=== PATIENT | female | born 1985 | race Caucasian/White ===

== ENCOUNTER 2019-06-17 07:42 | Emergency (ER) | payer MEDICAID ==
[~2019-06-17] VITALS: Ht 162.6 cm; Wt 90.0 kg
[2019-06-17 08:27] LABS: BILIRUBIN,URINE NEGATIVE (NEG); CLARITY,URINE CLEAR; COLOR,URINE YELLOW; NITRITE,URINE NEGATIVE (NEG); PROTEIN,URINE NEGATIVE (NEG-TRACE); UROBILINOGEN,URINE 0.2 mg/dL (0.2 mg/dL)
[2019-06-17 08:38] LABS: BASO # 0.1 x10^3/uL (0.0-0.2); BASO % 1 % (0-3); EOS # 0.2 x10^3/uL (0.0-0.7); EOS % 3 % (0-3); HEMATOCRIT 38.7 % (36.0-47.0); HEMOGLOBIN 13.3 g/dL (12.0-15.5); LYMPH # 2.8 x10^3/uL (1.0-4.8); LYMPH % 28 % (24-48); MEAN CORPUSCULAR HEMOGLOBIN 30 pg (25-35); MEAN CORPUSCULAR HGB CONC 35 g/dL (31-37); MEAN CORPUSCULAR VOLUME 87 fL (79-100); MONO # 0.8 x10^3/uL (0.0-1.1); MONO % 8 % (0-9); NEUT % 61 % (31-73); PLATELET COUNT 267 x10^3/uL (140-400); RED BLOOD COUNT 4.46 x10^6/uL (3.50-5.40); RED CELL DISTRIBUTION WIDTH 12.3 % (11.5-14.5); WHITE BLOOD COUNT 9.9 x10^3/uL (4.0-11.0)
[2019-06-17 08:47] LABS: BACTERIA,URINE FEW /HPF (0-FEW); SQUAMOUS EPITHELIAL CELL,UR MANY /LPF; WBC,URINE OCC /HPF (0-4)
[2019-06-17 08:53] LABS: CALCIUM 8.6 mg/dL (8.5-10.1); CREATININE 0.7 mg/dL (0.6-1.0); POTASSIUM 3.7 mmol/L (3.5-5.1)
--- NOTE | 2019-06-17 09:03 | RAD ---
Examination: OB <14 WKS W/TV History: Vaginal bleeding. Fibroids.. Comparison/Correlation: None Findings: Endovaginal and transvaginal OB ultrasound stones were performed. Uterus measures 8.8 cm 4.3 cm x 5.1 cm. Intrauterine gestational sac is present with mean diameter of 1.03 cm corresponding to 5 weeks 5 days gestation. Yolk sac is evident. No pole. Small subchronic hemorrhage) 0.5 cm 0.2 cm 0.6 cm). Myometrium is unremarkable. Ultrasound EDC of 02/12/2020 11. Right ovary measures 2.8 cm x 2.6 cm x 2.3 cm. The thyroid measures 2.2 cm x 2.4 cm x 2.5 cm. Right ovarian follicle measuring up to 2 cm diameter is present and may represent a corpus luteum cyst. Nabothian cysts are present within the uterine cervix. Impression: Intrauterine gestational sac is present. Yolk sac is present. No pole identified and this may represent an early intrauterine gestation. Consider continued interval follow-up ultrasound. Small subchorionic hemorrhage. Electronically signed by: Rubio Garcia MD (06/17/2019 9:00 AM) [id number]
--- NOTE | 2019-06-17 09:47 | PHYS DOC ---
Past Medical History Past Medical History: Cancer Additional Past Medical Histor: BRAIN CANCER Past Surgical History: Tonsillectomy, Other Additional Past Surgical Histo: BRAIN SURGERY Smoking Status: Former Smoker Alcohol Use: None Adult General Chief Complaint Chief Complaint: VAGINAL BLEEDING [facility] HPI Patient is a 33 year old female with history of pain to more who presents with complaint of vaginal bleeding during . Patient is at 5 weeks of gestation LMP of May 09 with confirmed at another emergency room with positive test and intrauterine with ultrasound. Patient complaining of vaginal spotting this morning with marked left lower quadrant pain that her pain 2/10. Patient did not have recent intercourse and denies fever and chills, nausea and vomiting, vaginal discharge. Patient has her first [facility] INSPECTOR appointment on July 02. Review of Systems Review of Systems Constitutional: Denies fever or chills [] Eyes: Denies change in visual acuity, redness, or eye pain [] HENT: Denies nasal congestion or sore throat [] Respiratory: Denies cough or shortness of breath [] Cardiovascular: No additional information not addressed in HPI [] GI: Reports abdominal pain, denies nausea, vomiting, bloody stools or diarrhea [] : Denies dysuria or hematuria [] Musculoskeletal: Denies back pain or joint pain [] Integument: Denies rash or skin lesions [] Neurologic: Denies headache, focal weakness or sensory changes [] Endocrine: Denies polyuria or polydipsia [] All other systems were reviewed and found to be within normal limits, except as documented in this note. Allergies Allergies Allergies Coded Allergies Type Severity Reaction Last Updated Verified guaifenesin Allergy Unknown 06/17/19 Yes morphine Allergy Unknown 06/17/19 Yes promethazine Allergy Unknown 06/17/19 Yes Physical Exam Physical Exam Constitutional: Well developed, well nourished, no distress, non-toxic appearance. [] HENT: Normocephalic, atraumatic. Eyes: PERRLA, EOMI, conjunctiva normal, no discharge. [] Neck: Normal range of motion, no tenderness, supple, no stridor. [] Cardiovascular:Heart rate regular rhythm, no murmur [] Lungs & Thorax: Bilateral breath sounds clear to auscultation [] Abdomen: Bowel sounds normal, soft, no tenderness, no masses, no pulsatile masses. Patient didn't want to have vaginal exam. Skin: Warm, dry, no erythema, no rash. [] Back: No tenderness, no CVA tenderness. [] Extremities: No tenderness, no cyanosis, no clubbing, ROM intact, no edema. [] Neurologic: Alert and oriented X 3, no focal deficits noted. [] Psychologic: Affect normal, judgement normal, mood normal. [] Current Patient Data Vital Signs Vital Signs Date Time Temp Pulse Resp B/P (MAP) Pulse Ox O2 Delivery O2 Flow Rate FiO2 06/17/19 09:58 71 16 122/56 (78) 99 Room Air 06/17/19 07:50 98.2 98.2 Lab Values Laboratory Tests Test 06/17/19 07:52 06/17/19 07:55 06/17/19 08:22 Urine Collection Type Unknown Urine Color Yellow Urine Clarity Clear Urine pH 6.0 Urine Specific [place] 1.020 Urine Protein Negative mg/dL (NEG-TRACE) Urine Glucose (UA) Negative mg/dL (NEG) Urine Ketones (Stick) Negative mg/dL (NEG) Urine Blood Moderate (NEG) Urine Nitrite Negative (NEG) Urine Bilirubin Negative (NEG) Urine Urobilinogen Dipstick 0.2 mg/dL (0.2 mg/dL) Urine Leukocyte Esterase Small (NEG) Urine RBC 1-2 /HPF (0-2) Urine WBC Occ /HPF (0-4) Urine Squamous Epithelial Cells Many /LPF Urine Bacteria Few /HPF (0-FEW) Urine Mucus Marked /LPF POC Urine HCG, Qualitative Hcg positive (Negative) White Blood Count 9.9 x10^3/uL (4.0-11.0) Red Blood Count 4.46 x10^6/uL (3.50-5.40) Hemoglobin 13.3 g/dL (12.0-15.5) Hematocrit 38.7 % (36.0-47.0) Mean Corpuscular Volume 87 fL (79-100) Mean Corpuscular Hemoglobin 30 pg (25-35) Mean Corpuscular Hemoglobin Concent 35 g/dL (31-37) Red Cell Distribution Width 12.3 % (11.5-14.5) Platelet Count 267 x10^3/uL (140-400) Neutrophils (%) (Auto) 61 % (31-73) Lymphocytes (%) (Auto) 28 % (24-48) Monocytes (%) (Auto) 8 % (0-9) Eosinophils (%) (Auto) 3 % (0-3) Basophils (%) (Auto) 1 % (0-3) Neutrophils # (Auto) 6.0 x10^3/uL (1.8-7.7) Lymphocytes # (Auto) 2.8 x10^3/uL (1.0-4.8) Monocytes # (Auto) 0.8 x10^3/uL (0.0-1.1) Eosinophils # (Auto) 0.2 x10^3/uL (0.0-0.7) Basophils # (Auto) 0.1 x10^3/uL (0.0-0.2) Maternal Serum HCG Beta Subunit 7396 mIU/mL (0-5) H Sodium Level 137 mmol/L (136-145) Potassium Level 3.7 mmol/L (3.5-5.1) Chloride Level 105 mmol/L (98-107) Carbon Dioxide Level 22 mmol/L (21-32) Anion Gap 10 (6-14) Blood Urea Nitrogen 9 mg/dL (7-20) Creatinine 0.7 mg/dL (0.6-1.0) Estimated GFR (Cockcroft-Gault) 97.0 Glucose Level 93 mg/dL (70-99) Calcium Level 8.6 mg/dL (8.5-10.1) Laboratory Tests 06/17/19 08:22 Laboratory Tests 06/17/19 08:22 EKG EKG [] Radiology/Procedures Radiology/Procedures [facility] [address] [place], [place] [id number] IMAGING REPORT Signed PATIENT: ACCOUNT: [id number] : 1985 LOCATION: ER AGE: 33 SEX: F EXAM STATUS: REG ER ORD. PHYSICIAN: DAYANA FRANKS MD REASON: 5 weeks with vaginal bleeding PROCEDURE: OB <14 WKS W/TV Examination: OB <14 WKS W/TV History: Vaginal bleeding. Fibroids.. Comparison/Correlation: None Findings: Endovaginal and transvaginal OB ultrasound stones were performed. Uterus measures 8.8 cm 4.3 cm x 5.1 cm. Intrauterine gestational sac is present with mean diameter of 1.03 cm corresponding to 5 weeks 5 days gestation. Yolk sac is evident. No pole. Small subchronic hemorrhage) 0.5 cm 0.2 cm 0.6 cm). Myometrium is unremarkable. Ultrasound EDC of 02/12/2020 11. Right ovary measures 2.8 cm x 2.6 cm x 2.3 cm. The thyroid measures 2.2 cm x 2.4 cm x 2.5 cm. Right ovarian follicle measuring up to 2 cm diameter is present and may represent a corpus luteum cyst. Nabothian cysts are present within the uterine cervix. Impression: Intrauterine gestational sac is present. Yolk sac is present. No pole identified and this may represent an early intrauterine gestation. Consider continued interval follow-up ultrasound. Small subchorionic hemorrhage. Electronically signed by: Neftali Holt MD (06/17/2019 9:00 AM) [id number] DICTATED and SIGNED BY: NEFTALI HOLT MD DATE: 06/17/19 0900 Course & Med Decision Making Course & Med Decision Making Pertinent Labs and Imaging studies reviewed. (See chart for details) Evaluation of patient in ER showed 33-year-old female patient at 5 weeks of gestation with vaginal spotting since this morning. Patient had hCG developed more than 7,000 and OB ultrasound showed intrauterine with yolk sac without heart rate. Patient was advised to follow-up with her [facility] INSPECTOR for repeat hCG in 48 hours. I've spoken with the patient and/or caregivers. I've explained the patient's condition, diagnosis and treatment plan based on information available to me at this time. I've answered the patient's and/or caregivers questions and addressed any concerns. The patient and/or caregivers have a good understanding the patient's diagnosis, condition and treatment plan as can be expected at this point. Vital signs have been stabilized. The patient's condition is stable for discharge from the emergency department. The patient will pursue further outpatient evaluation with her primary care provider or other designated consulting physician as outlined in the discharge instructions. Patient and/or caregivers are agreeable to this plan of care and follow-up instructions have been explained in detail. The patient and/or c aregivers have received these instructions in written format and expressed understanding of these discharge instructions. The patient and her caregivers are aware that if any significant change in condition or worsening of symptoms should prompt him to immediately return to this of the closest emergency department. If an emergent department is not readily available I would encourage him to call 911. Leila Disclaimer Leila Disclaimer This electronic medical record was generated, in whole or in part, using a voice recognition dictation system. Departure Departure Impression: Primary Impression: Threatened Disposition: HOME, SELF-CARE (at 945) Condition: STABLE Referrals: NO PCP (PCP) Patient Instructions: Threatened Miscarriage Additional Instructions: Drink plenty of liquids Follow-up with your WHEAT INSPECTOR physician in 2 days for repeat blood test your current Beta hCG is 7396 Return to ER if not getting better DAYANA FRANKS MD Jun 17, 2019 09:47
[2019-06-17 09:58] VITALS: BP 122/56
== END 2019-06-17 09:58 | disposition home or self-care (01) ==
LOC: ER 07:42
DX: O20.0 Threatened abortion (principal); Z3A.01 Less than 8 weeks gestation of pregnancy; Z87.891 Personal history of nicotine dependence; Z88.5 Allergy status to narcotic agent; Z88.8 Allergy status to other drugs, medicaments and biological substances
CPT/HCPCS: 36415; 76801; 76817; 80048; 81001; 81025; 84702; 85025; 86900; 86901; 87086; 99285-25

== ENCOUNTER 2019-06-23 08:00 | Emergency (ER) | payer MEDICAID ==
[~2019-06-23] VITALS: Ht 162.6 cm; Wt 90.0 kg
[2019-06-23] MEDS ORDERED: IV NORMAL SALINE 1000ML BAG 1,000 ML IV ONE (08:15)
[2019-06-23 08:21] LABS: BASO # 0.1 x10^3/uL (0.0-0.2); BASO % 1 % (0-3); EOS # 0.3 x10^3/uL (0.0-0.7); EOS % 3 % (0-3); HEMATOCRIT 38.6 % (36.0-47.0); HEMOGLOBIN 13.2 g/dL (12.0-15.5); LYMPH # 3.1 x10^3/uL (1.0-4.8); LYMPH % 29 % (24-48); MEAN CORPUSCULAR HEMOGLOBIN 31 pg (25-35); MEAN CORPUSCULAR HGB CONC 34 g/dL (31-37); MEAN CORPUSCULAR VOLUME 89 fL (79-100); MONO # 0.7 x10^3/uL (0.0-1.1); MONO % 6 % (0-9); NEUT # 6.6 x10^3/uL (1.8-7.7); NEUT % 61 % (31-73); PLATELET COUNT 245 x10^3/uL (140-400); RED BLOOD COUNT 4.33 x10^6/uL (3.50-5.40); RED CELL DISTRIBUTION WIDTH 12.2 % (11.5-14.5); WHITE BLOOD COUNT 10.8 x10^3/uL (4.0-11.0)
--- NOTE | 2019-06-23 08:35 | PHYS DOC ---
Past Medical History Past Medical History: Cancer, Seizure Additional Past Medical Histor: BRAIN CANCER Past Surgical History: Tonsillectomy, Other Additional Past Surgical Histo: BRAIN SURGERY Smoking Status: Current Every Day Smoker Alcohol Use: None Drug Use: None Adult General Chief Complaint Chief Complaint: SEIZURE HPI HPI Patient is a 33 year old female with a history of brain cancer s/p brain surgery with subsequent seizures presents with reports of breakthrough seizure-like activity this morning. Her boyfriend states that he saw the patient having generalized tonic-clonic seizures in her bed around 730AM this morning. He states the episode lasted for around 5 minutes and the patient was confused once the seizures stopped. He denies witnessing any head trauma during the episode. Patient reports some headache. She is having some pain on the left lateral side of her tongue which she bit during the episode. She states that she is currently 6 weeks and has not had an OB visit for her yet. She states she is not currently having any vaginal bleeding. Patient states she is currently not being followed by a neurologist but was seen by [facility] in the past. Last seizure took place back in December and she was seen at [facility] ED where a head CT w/o contrast came back normal, per patient. Review of Systems Review of Systems Constitutional: Denies fever or chills Eyes: Denies redness or eye pain HENT: Denies nasal congestion or sore throat Respiratory: Denies cough or shortness of breath Cardiovascular: Denies chest pain or palpitations GI: Denies abdominal pain, nausea, or vomiting : Denies dysuria or hematuria Musculoskeletal: Denies back pain or joint pain Integument: Denies rash or skin lesions Neurologic: Denies headache, focal weakness or sensory changes; reports seizure- like activity and headache Complete systems were reviewed and found to be within normal limits, except as documented in this note. Family History Family History No pertinent family history. Current Medications Current Medications Current Medications Medications (Trade) Dose Ordered Sig/Adilene Start Time Stop Time Status Last Admin Dose Admin Acetaminophen (Tylenol) 500 mg 1X ONCE 06/23/19 09:30 06/23/19 09:32 DC 06/23/19 09:46 500 MG Sodium Chloride 1,000 ml @ 1,000 mls/hr 1X ONCE 06/23/19 08:15 06/23/19 09:14 DC 06/23/19 08:52 1,000 MLS/HR Allergies Allergies Allergies Coded Allergies Type Severity Reaction Last Updated Verified guaifenesin Allergy Unknown 06/17/19 Yes morphine Allergy Unknown 06/17/19 Yes promethazine Allergy Unknown 06/17/19 Yes Physical Exam Physical Exam Constitutional: Well developed, well nourished, no acute distress, non-toxic appearance HENT: Normocephalic, mild erythema in the left lateral side of her tongue, oropharynx moist Eyes: PERRLA, EOMI, conjunctiva normal, no discharge, no nystagmus Neck: Normal range of motion, no tenderness, supple Cardiovascular: Heart rate normal, regular rhythm Lungs & Thorax: Bilateral breath sounds clear to auscultation, no wheezing Abdomen: Soft, no tenderness Skin: Warm, dry, no erythema, no rash Extremities: No tenderness, ROM intact, no edema Neurologic: Alert and oriented X 3, normal motor function, normal sensory function, no focal deficits noted, CN II-XII intact bilaterally Psychologic: Affect normal, judgment normal Current Patient Data Vital Signs Vital Signs Date Time Temp Pulse Resp B/P (MAP) Pulse Ox O2 Delivery O2 Flow Rate FiO2 06/23/19 10:32 68 16 99 06/23/19 08:00 97.1 112/69 (83) Room Air 97.1 Lab Values Laboratory Tests Test 06/23/19 08:04 06/23/19 08:24 06/23/19 08:48 White Blood Count 10.8 x10^3/uL (4.0-11.0) Red Blood Count 4.33 x10^6/uL (3.50-5.40) Hemoglobin 13.2 g/dL (12.0-15.5) Hematocrit 38.6 % (36.0-47.0) Mean Corpuscular Volume 89 fL (79-100) Mean Corpuscular Hemoglobin 31 pg (25-35) Mean Corpuscular Hemoglobin Concent 34 g/dL (31-37) Red Cell Distribution Width 12.2 % (11.5-14.5) Platelet Count 245 x10^3/uL (140-400) Neutrophils (%) (Auto) 61 % (31-73) Lymphocytes (%) (Auto) 29 % (24-48) Monocytes (%) (Auto) 6 % (0-9) Eosinophils (%) (Auto) 3 % (0-3) Basophils (%) (Auto) 1 % (0-3) Neutrophils # (Auto) 6.6 x10^3/uL (1.8-7.7) Lymphocytes # (Auto) 3.1 x10^3/uL (1.0-4.8) Monocytes # (Auto) 0.7 x10^3/uL (0.0-1.1) Eosinophils # (Auto) 0.3 x10^3/uL (0.0-0.7) Basophils # (Auto) 0.1 x10^3/uL (0.0-0.2) Lactic Acid Level 5.2 mmol/L (0.4-2.0) *H Urine Collection Type Void Urine Color Yellow Urine Clarity Hazy Urine pH 6.0 Urine Specific [place] 1.025 Urine Protein 30 mg/dL (NEG-TRACE) Urine Glucose (UA) Negative mg/dL (NEG) Urine Ketones (Stick) Negative mg/dL (NEG) Urine Blood Negative (NEG) Urine Nitrite Negative (NEG) Urine Bilirubin Negative (NEG) Urine Urobilinogen Dipstick 0.2 mg/dL (0.2 mg/dL) Urine Leukocyte Esterase Large (NEG) Urine RBC 1-2 /HPF (0-2) Urine WBC >40 /HPF (0-4) Urine Squamous Epithelial Cells Many /LPF Urine Bacteria Many /HPF (0-FEW) Urine Mucus Marked /LPF Maternal Serum HCG Beta Subunit 48090 mIU/mL (0-5) H Sodium Level 137 mmol/L (136-145) Potassium Level 4.2 mmol/L (3.5-5.1) Chloride Level 104 mmol/L (98-107) Carbon Dioxide Level 20 mmol/L (21-32) L Anion Gap 13 (6-14) Blood Urea Nitrogen 12 mg/dL (7-20) Creatinine 0.7 mg/dL (0.6-1.0) Estimated GFR (Cockcroft-Gault) 97.0 BUN/Creatinine Ratio 17 (6-20) Glucose Level 94 mg/dL (70-99) Calcium Level 8.6 mg/dL (8.5-10.1) Magnesium Level 1.8 mg/dL (1.8-2.4) Total Bilirubin 1.0 mg/dL (0.2-1.0) Aspartate Amino Transferase (AST) 13 U/L (15-37) L Alanine Aminotransferase (ALT) 19 U/L (14-59) Alkaline Phosphatase 71 U/L (46-116) Creatine Kinase 65 U/L (26-192) Total Protein 6.4 g/dL (6.4-8.2) Albumin 3.2 g/dL (3.4-5.0) L Albumin/Globulin Ratio 1.0 (1.0-1.7) Laboratory Tests 06/23/19 08:04 Laboratory Tests 06/23/19 08:48 Course & Med Decision Making Course & Med Decision Making Pertinent Labs reviewed. (See chart for details) Patient is a 33 year old female with a history of brain cancer s/p brain surgery, and seizures who presents with seizure-like activity. The episode occurred this morning at home in her bed around 730AM and was witnessed by her boyfriend. The episode lasted around 5 minutes and the patient was confused when the episode ended, per her boyfriend. Patient is currently 6 weeks and denies having any vaginal bleeding at this time. IVF were ordered. Serum HCG confirmed and levels were increased compar ed to that of her last visit at [place] ED for which she presented with threatened and bleeding on 06/17/19 per her [facility] chart review. Patient was given Tylenol for headache. Labs were significant for a lactic acid of 5.6 consistent with tonic clonic episode and anaerobic metabolism. UA showed increased WBCs, but patient is denying dysuria or hematuria at this time. Urine culture was ordered to rule out UTI. Patient is stable for discharge at this time. Patient was instructed to take OTC Tylenol for headaches as needed and to follow up with [facility] for her seizures and [facility] for the after discharge. Patient stable for discharge home with outpatient follow-up with PCP/OB/Neurologist. Discussed findings and plan with patient, who acknowledges understanding and agreement. Dragon Disclaimer Dragon Disclaimer This electronic medical record was generated, in whole or in part, using a voice recognition dictation system. Departure Departure Impression: Primary Impression: Breakthrough seizure Additional Impression: Disposition: 01 HOME, SELF-CARE Condition: STABLE Referrals: NO PCP (PCP) Patient Instructions: ABCs of , Seizure, Adult, [id number] Additional Instructions: May take [id number] Tylenol for pain as needed. Problem Qualifiers Additional Impression: Weeks of gestation: unspecified Qualified Codes: Z34.90 - Encounter for supervision of normal , unspecified, unspecified trimester ARELI GRIFFIN DO Jun 23, 2019 08:35
[2019-06-23 08:47] LABS: BILIRUBIN,URINE NEGATIVE (NEG); COLOR,URINE YELLOW; NITRITE,URINE NEGATIVE (NEG); PROTEIN,URINE 30 mg/dL (NEG-TRACE); UROBILINOGEN,URINE 0.2 mg/dL (0.2 mg/dL)
[2019-06-23 08:50] LABS: CLARITY,URINE HAZY
[2019-06-23 08:52] LABS: BACTERIA,URINE MANY /HPF (0-FEW); SQUAMOUS EPITHELIAL CELL,UR MANY /LPF; WBC,URINE >40 /HPF (0-4)
[2019-06-23 09:19] LABS: CALCIUM 8.6 mg/dL (8.5-10.1); CREATININE 0.7 mg/dL (0.6-1.0); POTASSIUM 4.2 mmol/L (3.5-5.1)
[2019-06-23 09:25] LABS: ALBUMIN 3.2 g/dL (3.4-5.0); MAGNESIUM 1.8 mg/dL (1.8-2.4); TOTAL PROTEIN 6.4 g/dL (6.4-8.2)
[2019-06-23] MEDS ORDERED: ACETAMINOPHEN 500 MG TABLET PO ONE (09:30)
[2019-06-23 10:32] VITALS: BP 115/60
== END 2019-06-23 11:02 | disposition home or self-care (01) ==
LOC: ER 08:00
DX: O26.891 Other specified pregnancy related conditions, first trimester (principal); G40.89 Other seizures; R51 Headache; R41.0 Disorientation, unspecified; O99.331 Smoking (tobacco) complicating pregnancy, first trimester; Z85.841 Personal history of malignant neoplasm of brain; Z90.89 Acquired absence of other organs; Z98.890 Other specified postprocedural states; Z88.6 Allergy status to analgesic agent; Z88.8 Allergy status to other drugs, medicaments and biological substances; Z3A.01 Less than 8 weeks gestation of pregnancy
CPT/HCPCS: 36415; 80053; 81001; 82550; 83605; 83735; 84702; 85025; 87086; 96360; 99284; J7030

== ENCOUNTER 2019-12-04 00:52 | Emergency (ER) | payer MEDICAID ==
[~2019-12-04] VITALS: Ht 162.6 cm; Wt 86.4 kg
[2019-12-04 01:05] LABS: BILIRUBIN,URINE NEGATIVE (NEG); CLARITY,URINE CLOUDY; COLOR,URINE YELLOW; NITRITE,URINE NEGATIVE (NEG); PH,URINE 5.5 (<5.0-8.0); PROTEIN,URINE NEGATIVE (NEG-TRACE); UROBILINOGEN,URINE 0.2 mg/dL (0.2 mg/dL)
[2019-12-04 01:17] LABS: BACTERIA,URINE MANY /HPF (0-FEW); RBC,URINE OCC /HPF (0-2); SQUAMOUS EPITHELIAL CELL,UR MANY /LPF; WBC,URINE 20-40 /HPF (0-4)
[2019-12-04 01:34] VITALS: BP 131/80
--- NOTE | 2019-12-04 02:32 | RAD ---
Obstetric ultrasound less than 14 weeks: Reason for examination: Abdominal pain and cramping starting yesterday. No bleeding. Transabdominal ultrasound examination of the pelvis was performed. Uterus measures 11.2 x 6.5 x 7.7 cm in greatest dimensions. Right ovary measures 2.7 x 2.3 x 2 cm in greatest dimension with normal vascular flow. Left ovary is not visualized. There is no free fluid in the cul-de-sac. There is a single viable intrauterine gestation present with a heart rate of 163 bpm. Gestational sac shows normal contour. No hemorrhage is evident. Yolk sac is identified. pole is present with a crown-rump length measuring approximately 1.66 cm corresponding to gestational age of 8 weeks 1 day. Gestational sac measures 4.09 cm corresponding to gestational age of 9 weeks 4 days. Mean gestational age is estimated at 8 weeks 6 days with estimated date of confinement of 07/09/2020. IMPRESSION: Single viable intrauterine gestation with a mean gestational age estimated at 8 weeks 6 days with estimated date of confinement of 07/09/2020. Electronically signed by: Ngoc Pérez MD (12/04/2019 2:30 AM) [id number]
--- NOTE | 2019-12-04 02:56 | PHYS DOC ---
Past Medical History Past Medical History: Seizure Additional Past Medical Histor: BRAIN CANCER Past Surgical History: Tonsillectomy, Other Additional Past Surgical Histo: Brain surgery X2, ear sx, foot Smoking Status: Current Every Day Smoker Alcohol Use: None Drug Use: None General Adult EDM: Chief Complaint: ABDOMINAL PAIN IN HPI: HPI: Patient is a 33 year old female at 8 weeks gestation who presents with left pelvic cramping that started yesterday. She denies any vaginal bleeding. She has not had any cramping with this . She denies any dysuria. She has not had any vaginal discharge. She also has a headache. This is typical of her normal headaches. She gets migraines due to previous brain cancer. She denies any symptoms with this. This started earlier this evening and has progressively gotten worse. Review of Systems: Review of Systems: General: Denies fever, chills, sweats, fatigue Eyes: Denies drainage, blurred vision, eye redness HENT: Denies rhinorrhea, sore throat, earache Respiratory: Denies cough, shortness of breath, wheezing Cardiac: Denies edema, palpitations, chest pain GI: Denies abdominal pain, Nausea, vomiting reports pelvic pain MSK: Denies back pain, neck pain Skin: Denies rash, jaundice Neuro: Denies dizziness reports headache Psychiatric: Denies SI/HI Heart Score: Risk Factors: Risk Factors: DM, Current or recent (<one month) smoker, HTN, HLP, family history of CAD, obesity. Risk Scores: Score 0 - 3: 2.5% MACE over next 6 weeks - Discharge Home Score 4 - 6: 20.3% MACE over next 6 weeks - Admit for Clinical Observation Score 7 - 10: 72.7% MACE over next 6 weeks - Early Invasive Strategies Current Medications: Current Medications Medications (Trade) Dose Ordered Sig/Adilene Start Time Stop Time Status Last Admin Dose Admin Diphenhydramine HCl (Benadryl) 25 mg 1X ONCE 12/04/19 03:00 12/04/19 03:01 Metoclopramide HCl (Reglan) 10 mg 1X ONCE 12/04/19 03:00 12/04/19 03:01 Sodium Chloride 1,000 ml @ 1,000 mls/hr 1X ONCE 12/04/19 02:45 12/04/19 03:44 UNV Allergies: Allergies: Allergies Coded Allergies Type Severity Reaction Last Updated Verified guaifenesin Allergy Unknown 06/17/19 Yes morphine Allergy Unknown 06/17/19 Yes promethazine Allergy Unknown 06/17/19 Yes Physical Exam: PE: General: Awake, alert, NAD. Well Nourished, well hydrated. Cooperative HEENT: Atraumatic, EOMI, PERRL, airway patent, moist oral mucosa Neck: Supple, trachea midline Respiratory: CTA bilaterally, normal effort, no wheezing/crackles CV: RRR, no murmur, cap refill <2 GI: Soft, nondistended, nontender, no masses MSK: No obvious deformities Skin: Warm, dry, intact Neuro: A&O x3, speech NL, sensory and motor grossly intact, no focal deficits Psych: Normal affect, normal mood, not suicidal or homicidal Current Patient Data: Labs: Laboratory Tests Test 12/04/19 00:51 12/04/19 01:03 Urine Collection Type Unknown Urine Color Yellow Urine Clarity Cloudy Urine pH 5.5 (<5.0-8.0) Urine Specific [place] >=1.030 (1.000-1.030) Urine Protein Negative mg/dL (NEG-TRACE) Urine Glucose (UA) Negative mg/dL (NEG) Urine Ketones (Stick) Negative mg/dL (NEG) Urine Blood Negative (NEG) Urine Nitrite Negative (NEG) Urine Bilirubin Negative (NEG) Urine Urobilinogen Dipstick 0.2 mg/dL (0.2 mg/dL) Urine Leukocyte Esterase Trace (NEG) Urine RBC Occ /HPF (0-2) Urine WBC 20-40 /HPF (0-4) Urine Squamous Epithelial Cells Many /LPF Urine Bacteria Many /HPF (0-FEW) Urine Mucus Marked /LPF POC Urine HCG, Qualitative Hcg positive (Negative) Vital Signs: Vital Signs Date Time Temp Pulse Resp B/P (MAP) Pulse Ox O2 Delivery O2 Flow Rate FiO2 12/04/19 01:34 98.2 71 20 131/80 (97) 99 Room Air 98.2 EKG: EKG: [] Radiology/Procedures: Radiology/Procedures: [] Course & Med Decision Making: Course & Med Decision Making Pertinent Labs and Imaging studies reviewed. (See chart for details) Patient is a 33-year-old female at 8 weeks gestation presenting to the emergency room with pelvic pain. Ultrasound was done which shows a viable 8-week intrauterine . UA was ordered. Patient was given medication for headache. This is her typical headache without any new features. There is no concern at this time for intracranial hemorrhage, infection, encephalopathy. Headache treated. Patient will be given antibiotics for UTI. Patient's test results and vitals while in the ED were fully reviewed and discussed with the patient. Patient is stable and at this time does not need admission to the hospital. We have discussed strict return precautions and the importance of following up with their Primary Care Physician. Patient stated understanding and was given an opportunity to ask any questions. Patient is in agreement with plan. Dragon Disclaimer: Dragon Disclaimer: This electronic medical record was generated, in whole or in part, using a voice recognition dictation system. Departure Departure Impression: Primary Impression: Headache Additional Impression: Abdominal pain affecting Disposition: HOME, SELF-CARE Condition: IMPROVED Referrals: NO PCP (PCP) Patient Instructions: Abdominal Pain During Scripts Cephalexin (KEFLEX) 500 Mg Capsule 1 CAP PO Q12HR for 7 Days, #14 CAP 0 Refills Prov: DONNIE REED MD 12/04/19 Justicifation of Admission Dx: Justifications for Admission: Justification of Admission Dx: No DONNIE REED MD Dec 04, 2019 02:55
[2019-12-04] MEDS ORDERED: CEPH-264 PO (02:57)
[2019-12-04] MEDS ORDERED: METOCLOPRAMIDE 10 MG TABLET. PO ONE (03:00)
[2019-12-04] MEDS ORDERED: IV NORMAL SALINE 1000ML BAG 1,000 ML IV ONE (03:00)
[2019-12-04] MEDS ORDERED: diphenhydrAMINE HCL 25 MG CAPSULE PO ONE (03:00)
== END 2019-12-04 04:05 | disposition home or self-care (01) ==
LOC: ER 00:52
DX: O26.891 Other specified pregnancy related conditions, first trimester (principal); G43.909 Migraine, unspecified, not intractable, without status migrainosus; R10.9 Unspecified abdominal pain; R10.2 Pelvic and perineal pain; O99.331 Smoking (tobacco) complicating pregnancy, first trimester; Z3A.08 8 weeks gestation of pregnancy; Z98.890 Other specified postprocedural states
CPT/HCPCS: 76801; 81001; 81025; 99284; J7030

== ENCOUNTER 2021-03-23 06:03 | Emergency (ER) | payer MEDICAID ==
[~2021-03-23] VITALS: Ht 162.6 cm; Wt 90.9 kg
[~2021-03-23 06:03] MED LIST: CEPH-264 PO
--- NOTE | 2021-03-23 06:22 | PHYS DOC ---
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 States that she began having seizures approximately 5 years ago when she was first diagnosed with a brain cancer. She had previously been on Keppra. Had a resection of a brain cancer at [facility]. States that for the past year after her resection has been seizure-free, and is no longer on Keppra. No recent medication changes. No drugs or alcohol use. No new life stressors. Has been sleeping okay. She cannot recall any triggers for her seizure tonight. Had a witnessed seizure in her sleep, with tonic-clonic activity. Has slowly been coming back to her neurologic baseline. blood glucose for EMS was 110. Review of Systems: Review of Systems: Constitutional: Denies fever or chills. [] Eyes: Denies change in visual acuity. [] HENT: Denies nasal congestion or sore throat. Reports tongue biting. [] Respiratory: Denies cough or shortness of breath. [] Cardiovascular: Denies chest pain or edema. [] GI: Denies abdominal pain, nausea, vomiting, bloody stools or diarrhea. [] : Denies dysuria. [] Musculoskeletal: Denies back pain or joint pain. [] Integument: Denies rash. [] Neurologic: Reports seizure. Reports mild headache. No focal weakness or sensory changes. [] Endocrine: Denies polyuria or polydipsia. [] Lymphatic: Denies swollen glands. [] Psychiatric: Denies depression or anxiety. [] Heart Score: C/O Chest Pain: No Risk Factors: Risk Factors: DM, Current or recent (<one month) smoker, HTN, HLP, family history of CAD, obesity. Risk Scores: Score 0 - 3: 2.5% MACE over next 6 weeks - Discharge Home Score 4 - 6: 20.3% MACE over next 6 weeks - Admit for Clinical Observation Score 7 - 10: 72.7% MACE over next 6 weeks - Early Invasive Strategies Allergies: Allergies: Allergies Coded Allergies Type Severity Reaction Last Updated Verified guaifenesin Allergy Unknown 06/17/19 Yes morphine Allergy Unknown 06/17/19 Yes promethazine Allergy Unknown 06/17/19 Yes Physical Exam: PE: Constitutional: Well developed, well nourished, no acute distress, non-toxic appearance. [] HENT: No external evidence of trauma. Lateral tongue biting apparent on the left. Eyes: PERRLA, EOMI, conjunctiva normal, no discharge. [] Neck: Normal range of motion, no tenderness, supple, no stridor. [] Cardiovascular:Heart rate regular rhythm, no murmur [] Lungs & Thorax: Bilateral breath sounds clear to auscultation [] Abdomen: Bowel sounds normal, soft, no tenderness, no masses, no pulsatile masses. [] Skin: Warm, dry, no erythema, no rash. [] Back: No tenderness, no CVA tenderness. [] Extremities: No tenderness, no cyanosis, no clubbing, ROM intact, no edema. [] Neurologic: Alert, oriented to person, place, time. Face is symmetric. Speech is normal. Cranial nerves III-XII intact. 5/5 strength in bilateral upper and lower extremities in all dermatomes. No dysmetria with [id number] or wdum-cp-[id number] testing. Gait is stable. Psychologic: Affect normal, judgement normal, mood normal. [] EKG: EKG: Sinus rhythm. Rate 79. Normal axis. Normal intervals. No ischemic changes. [] Radiology/Procedures: Radiology/Procedures: [] Impression: [facility] [address] [place], [place] [id number] IMAGING REPORT Signed PATIENT: LUPILLO ACCOUNT: [id number] : 1985 LOCATION: ER AGE: 35 SEX: F EXAM STATUS: REG ER ORD. PHYSICIAN: DORITA SAMAYOA MD REASON: hx brain cancer in remission, had recurrent seizure today PROCEDURE: CT HEAD WO/W CONTRAST PQRS Compliance Statement: One or more of the following individualized dose reduction techniques were utilized for this examination: 1. Automated exposure control 2. Adjustment of the mA and/or kV according to patient size 3. Use of iterative reconstruction technique CT HEAD WITHOUT AND WITH IV CONTRAST Clinical Indication: Reason: hx brain cancer in remission, had recurrent seizure today Comparison: None. Procedure: Axial images are obtained of the head from the skull base through the vertex before and after 70 cc of Omnipaque 300 IV contrast. Findings: There is right frontal lobe encephalomalacia. There is ex vacuo dilation of the right frontal horn. On postcontrast images no abnormal intracranial enhancement is identified. Small hypodensity anterior to the left frontal horn may also be encephalomalacia. No mass-effect, midline shift, hemorrhage, extra-axial fluid collection, or obvious acute infarction is identified. Basilar cisterns are patent. There has been previous right frontal craniotomy. No acute calvarial fracture is identified. The visualized paranasal sinuses are clear. Mastoid air cells are well aerated. IMPRESSION: 1. No acute intracranial abnormality. 2. Right frontal lobe encephalomalacia. No abnormal enhancement. Electronically signed by: Leopoldo Carter MD (03/23/2021 7:42 AM) [facility] DICTATED and SIGNED BY: LEOPOLDO CARTER MD DATE: 03/23/21 [id number] 0 Course & Med Decision Making: Course & Med Decision Making Pertinent Labs and Imaging studies reviewed. (See chart for details) Patient a 35-year-old female with a history of oligodendroglioma s/p resection who presents with her first seizure in over a year. Slowly returning to neurologic baseline. Vital signs reassuring, with some mild hypertension 131/63. Denies possibility of , tubes tied. Her seizure history has been tied to her cancer, so this is concerning for potential tumor recurrence. Will obtain CT head with/without contrast for further evaluation. 0622 No e/o metabolic cause for seizure on labs. CT head stable, no evidence of ICH or recurrence. Patient plans to f/u w/ outpatient neurologist. Will resume Keppra dosing. 0748 Leila Disclaimer: Leila Disclaimer: This electronic medical record was generated, in whole or in part, using a voice recognition dictation system. Departure Departure Impression: Primary Impression: Seizure Disposition: 01 HOME / SELF CARE / HOMELESS Condition: STABLE Referrals: NO PCP (PCP) Additional Instructions: Please call your outpatient neurologist to schedule a follow-up appointment. Please contact their office today to get this process started. You can resume your Keppra dose, starting at 500 milligrams twice daily. DANITA,DORITA E MD Mar 23, 2021 06:22
[2021-03-23] MEDS ORDERED: ONDANSETRON PF 4 MG/2 ML VIAL. ONE (06:43)
[2021-03-23 06:52] LABS: BASO # 0.1 x10^3/uL (0.0-0.2); BASO % 1 % (0-3); EOS # 0.2 x10^3/uL (0.0-0.7); EOS % 2 % (0-3); HEMATOCRIT 42.3 % (36.0-47.0); LYMPH # 2.5 x10^3/uL (1.0-4.8); LYMPH % 30 % (24-48); MEAN CORPUSCULAR HEMOGLOBIN 29 pg (25-35); MEAN CORPUSCULAR HGB CONC 33 g/dL (31-37); MEAN CORPUSCULAR VOLUME 88 fL (79-100); MONO # 0.5 x10^3/uL (0.0-1.1); MONO % 6 % (0-9); NEUT % 60 % (31-73); PLATELET COUNT 279 x10^3/uL (140-400); RED BLOOD COUNT 4.82 x10^6/uL (3.50-5.40); RED CELL DISTRIBUTION WIDTH 12.9 % (11.5-14.5); WHITE BLOOD COUNT 8.3 x10^3/uL (4.0-11.0)
[2021-03-23] MEDS ORDERED: ONDANSETRON PF 4 MG/2 ML VIAL. IVP ONE (07:00)
[2021-03-23 07:05] LABS: CALCIUM 8.3 mg/dL (8.5-10.1); GFR 63.5
[2021-03-23] MEDS ORDERED: IOHEXOL 300 MG/ML 100ML VIAL. IV ONE (07:15)
[2021-03-23] MEDS ORDERED: CONTRAST GIVEN. MC PRN (07:15)
--- NOTE | 2021-03-23 07:27 | EKG ---
[facility] [address] [place] [address] Test Date: 2021-03-23 Test Time: 06:18:23 Pat Name: [facility] Department: Room: Gender: F Regional Merchandising Manager: : 1985 Requested By: DORITA SAMAYOA Order Number: [id number] Reading MD: Stephen Turpin Measurements Intervals [place] Rate: 79 P: 42 WV: 174 QRS: 15 QRSD: 92 T: 28 QT: 378 QTc: 434 Interpretive Statements SINUS RHYTHM NORMAL ECG RI6.02 No previous ECG available for comparison Electronically Signed On 03-26-2021 9:23:52 [employer] by Stephen Turpin
--- NOTE | 2021-03-23 07:44 | RAD ---
PQRS Compliance Statement: One or more of the following individualized dose reduction techniques were utilized for this examinat ion: 1. Automated exposure control 2. Adjustment of the mA and/or kV according to patient size 3. Use of iterative reconstruction technique CT HEAD WITHOUT AND WITH IV CONTRAST Clinical Indication: Reason: hx brain cancer in remission, had recurrent seizure today Comparison: None. Procedure: Axial images are obtained of the head from the skull base through the vertex before and af ter 70 cc of Omnipaque 300 IV contrast. Findings: There is right frontal lobe encephalomalacia. There is ex vacuo dilation of the right frontal horn. O n postcontrast images no abnormal intracranial enhancement is identified. Small hypodensity anterior to the left frontal horn may also be encephalomalacia. No mass-effect, midline shift, hemorrhage, extra-axial fluid collection, or obvious acute infarction is identified. Basilar cisterns are patent. There has been previous right frontal craniotomy. No acute calvarial fracture is identified. The visualized paranasal sinuses are clear. Mastoid air cells are well aerated. IMPRESSION: 1. No acute intracranial abnormality. 2. Right frontal lobe encephalomalacia. No abnormal enhancement. Electronically signed by: Leopoldo Garza MD (03/23/2021 7:42 AM) [facility]
[2021-03-23 07:48] VITALS: BP 137/75
== END 2021-03-23 08:06 | disposition home or self-care (01) ==
LOC: ER 06:03
DX: G40.89 Other seizures (principal); R51.9 Headache, unspecified; F17.200 Nicotine dependence, unspecified, uncomplicated; Z88.5 Allergy status to narcotic agent; Z88.8 Allergy status to other drugs, medicaments and biological substances
CPT/HCPCS: 36415; 70470; 80048; 85025; 93005; 96374; 99285; J2405; Q9967